=== PATIENT | male | born 1975 | race Caucasian/White ===

== ENCOUNTER 2025-07-16 18:19 | Inpatient (IN) | payer MEDICAID, SELFPAY ==
[2025-07-16] VITALS (8 sets, daily range): BP systolic 131–169; BP diastolic 79–108; PULSE 106–124; RESP 16–22; TEMP 36.2–37.1; O2SAT 94–100; BMI 32.9; BMI 32.5
--- NOTE | 2025-07-16 19:28 | EX.ED.DYSGE1 ---
HPI History of Present Illness Chief Complaint: ETOH Intox Narrative Narrative: Chief complaint and HPI: 50-year-old male with past medical history of alcohol abuse presents for evaluation of alcohol detox. Patient states his last drink was yesterday evening. Drink about 1/2 gallon of whiskey. States he was in a detox program approximately 1 week ago at an outlying facility. States that he feels anxious with nausea and vomiting. Feels that he is actively withdrawing. Endorses a seizure from alcohol many years ago. Review of systems: See HPI Medications: As listed on the chart Allergies: As listed on the chart PFSH: Per chart Vital signs: As listed on the chart. Reviewed. Physical exam: Gen: A&O x3, anxious Head: Normocephalic, atraumatic Eyes: No sclera icterus, conjunctiva clear ENT: Dry mucous membranes CV: Tachycardic, regular rhythm, no murmurs Resp: Lungs CTA BL, no w/r/c GI: Abd soft, non-distended, non-tender, no r/r/g Musc: Full ROM, no deformity Skin: Warm, dry Neuro: Alert, oriented, grossly intact, sensation intact Psych: Cooperative PFSH PFSH Medical History no medical history Home Medications ?Medication ?Instructions ?Recorded ?Last Taken ?Type albuterol sulfate 90 mcg/actuation 2 inh inhalation Q6H PRN shortness 07/16/25 07/16/25 History aerosol inhaler (Ventolin HFA) of breath or wheezing esomeprazole magnesium PO DAILY gerd 07/16/25 07/16/25 History losartan 07/16/25 07/16/25 History Family History no significant family his Surgical History no surgical history Social History Smoking Status: Current every day smoker tobacco type: cigarettes EXAM Physical Exam Const Vital Signs: 07/16/25 18:21 07/16/25 19:21 07/16/25 20:00 Temperature 97.2 F L Temperature Source Temporal Pulse Rate 124 H 106 H 112 H Respiratory Rate 22 H 18 22 H Blood Pressure 169/105 H 152/101 H 143/108 H Blood Pressure Mean 126 118 119 Pulse Ox 98 99 97 Oxygen Delivery Method Room Air Room Air 07/16/25 21:00 07/16/25 22:00 07/16/25 22:38 Temperature 97.2 F L Temperature Source Pulse Rate 108 H 108 H 108 H Respiratory Rate 19 H 19 H Blood Pressure 131/79 H 139/94 H 139/94 H Blood Pressure Mean 96 109 109 Pulse Ox 94 100 100 Oxygen Delivery Method Room Air Room Air MDM MDM MDM Narrative Medical decision making narrative: 50-year-old male with past medical history of alcohol abuse presents for evaluation of alcohol detox. Patient states his last drink was yesterday evening. Drink about 1/2 gallon of whiskey. States he was in a detox program approximately 1 week ago at an outlying facility. States that he feels anxious with nausea and vomiting. Feels that he is actively withdrawing. Endorses a seizure from alcohol many years ago. Patient is actively withdrawing. Ativan, Zofran, NS bolus ordered. Laboratory workup ordered for detox program. Patient placed on seizure precautions. CBC without leukocytosis. Patient has anemia with hemoglobin of 12.5. CMP shows mild dehydration without CELIO. No transaminitis. Magnesium unremarkable. UA positive for barbiturates, benzodiazepines, cannabis. Likely secondary to the Ativan used as well as recent detox. Alcohol level 167. Patient will warrant admission for detox. Patient discussed with the hospital service who accepted admission. Patient was updated of all results and the plan confirmed understanding. Impression: 1. Alcohol intoxication with history of abuse 2. Requesting alcohol detox 3. Mild dehydration Lab Data Labs: Laboratory Results - last 24 hr 07/16/25 07/16/25 19:40 21:10 WBC 5.6 RBC 4.17 L Hgb 12.5 L Hct 36.8 L MCV 88.2 MCH 30.0 MCHC 34.0 RDW Std Deviation 66.7 H RDW Coeff of Marium 21.2 H Plt Count 254 MPV 9.4 Immature Gran % (Auto) 0.200 Neut % (Auto) 53.2 Lymph % (Auto) 35.6 [place] % (Auto) 10.3 H Eos % (Auto) 0.5 Baso % (Auto) 0.2 Absolute Neuts (auto) 3.0 Absolute Lymphs (auto) 1.98 Nucleated RBC % 0 Sodium 133 Potassium 4.0 Chloride 97 L Carbon Dioxide 17.2 L Anion Gap 19 H BUN 5 Creatinine 0.82 Estim Creat Clear Calc 137.13 Est GFR (MDRD) Non-Af 108 BUN/Creatinine Ratio 6.4 L Glucose 100 H Calcium 9.3 Magnesium 1.9 Total Bilirubin 0.29 AST 33 ALT 21 Alkaline Phosphatase 118 Total Protein 8.1 Albumin 4.3 Globulin 3.9 Albumin/Globulin Ratio 1.1 Urine Opiates Screen NEGATIVE U Buprenorphine Qual NEGATIVE Ur Oxycodone Screen NEGATIVE Urine Methadone Screen NEGATIVE Urine Fentanyl Screen NEGATIVE Ur Barbiturates Screen PRESUMPTIVE POSITIVE Ur Phencyclidine Scrn NEGATIVE Ur Amphetamines Screen NEGATIVE U Benzodiazepines Scrn PRESUMPTIVE POSITIVE Urine Cocaine Screen NEGATIVE U Cannabinoids Screen PRESUMPTIVE POSITIVE Ethyl Alcohol 167.0 H Discharge Plan Triage Chief Complaint: ETOH Intox ED Provider: Roel Bowden Dx/Rx/DC Orders Prescriptions: No Action albuterol sulfate [Ventolin HFA] 90 mcg/actuation HFA aerosol inhaler 2 inh inhalation Q6H PRN (Reason: shortness of breath or wheezing) losartan Patient Comments: doesnt know strength esomeprazole magnesium [Acid Architecture Intern (esomeprazole)] PO DAILY Patient Comments: pt does not know strength Primary Care Provider: Yary Barber,Out of Referrals: Yary Barber,Out of [Primary Care Provider, Medical] Print Language: Kinyarwanda
[2025-07-16] MEDS: 0.9% Normal Saline (1000mL) 1,000 ML 1000 ML IV (19:51)
[2025-07-16 20:02] LABS: Hematocrit 36.8 % (40-54); Hemoglobin 12.5 g/dL (13.0-16.5); Immature Granulocytes Count 0.010 X10^3/uL (0.0-0.0); Mean Corp Hgb Conc 34.0 g/dL (32-36); Mean Corpuscular Volume 88.2 fL (80-94); Mean Platelet Vol. 9.4 fl (6.2-12.0); NRBC Flagged by Analyzer 0 % (0-5); POSITIVE MORPHOLOGY YES; Platelet Count 254 K/mm3 (150-450); RBC Distribution Width CV 21.2 % (11.6-14.6); RBC Distribution Width SD 66.7 fl (35.1-43.9); Red Blood Count 4.17 M/mm3 (4.6-6.2); White Blood Count 5.6 K/mm3 (4.4-11.0)
[2025-07-16 20:32] LABS: Differential Indicated SCAN CRITERIA MET
[2025-07-16 20:55] LABS: Alcohol, Blood (Medical)-Serum 167.0 mg/dL (<=10.0)
[2025-07-16 20:59] LABS: Magnesium 1.9 mg/dL (1.5-2.2)
[2025-07-16 21:17] LABS: AST(SGOT) 33 U/L (<=37); Alanine Aminotransfer ALT/SGPT 21 U/L (<=46); Albumin, Serum 4.3 g/dL (3.5-5.0); Alkaline Phosphatase 118 U/L (40-129); Anion Gap 19 (5-15); BUN 5 mg/dL (4-19); BUN/Creat Ratio 6.4 RATIO (10-20); Calcium,Total 9.3 mg/dL (7.6-11.0); Carbon Dioxide 17.2 mmol/L (21.0-32.0); Chloride 97 mmol/L (98-108); Estimated Creatinine Clearance 137.13 ml/min (50-250); Globulin 3.9 g/dL (2.2-4.2); Glucose 100 mg/dL (70-99); Potassium 4.0 mmol/L (3.3-5.1)
[2025-07-16 22:03] LABS: Barbiturate Urine PRESUMPTIVE POSITIVE (< 200 ng/mL); Benzodiazepine Urine PRESUMPTIVE POSITIVE (< 200 ng/mL); PCP Urine NEGATIVE (< 25 ng/mL); THC Urine PRESUMPTIVE POSITIVE (< 50 ng/mL)
--- NOTE | 2025-07-16 22:48 | PCM.HP.STD ---
HPI - General General Date of Admission: 07/16/25 Date of Service: 07/16/25 Chief Complaint: EtOH detoxification HPI Narrative The patient is a 50 y/o M w/ PMHx: Suspected ROBER, HTN, HLD, Obesity, Tobacco use, EtOH abuse (1/2 gallon whiskey daily) who presents to the [facility] on 07/16/25 w/ request for alcohol detoxification with most recent drink reportedly the day prior at 4 PM however his alcohol level upon arrival notably elevated reporting that he had bee recently the week prior in [place] where he underwent inpatient acute alcohol withdrawal treatment at that time unfortunately relapsing upon discharge reporting currently mild nausea. Workup in the ED included T98.7, heart 108, BP 163/102, respiratory rate 18, 100% on room air, CBC with WC 5.6, Erin 12.5, MCV 88.2, platelet 254 without marked shift, CMP with chloride 97, carbon oxide 17.2, anion gap 19, BUN/creatinine 5/0.82, GFR 108, glucose 100, hepatic profile not marked appearing, UDS with barbiturates, benzodiazepines, cannabis, ethyl alcohol 167. In the ED patient ministered 1 L normal saline, lorazepam 1 mg IV x 1, Reglan 10 mg IV x 1, Zofran 4 mg IV x 2. [facility] Medical History ROBER (obstructive sleep apnea) HLD (hyperlipidemia) HTN (hypertension) Cannabis use disorder Tobacco use Obesity Alcohol abuse (~07/17/25) Medical History no medical history Home Medications ?Medication ?Instructions ?Recorded ?Last Taken ?Type albuterol sulfate 90 mcg/actuation 2 inh inhalation Q6H PRN shortness 07/16/25 07/16/25 History aerosol inhaler (Ventolin HFA) of breath or wheezing esomeprazole magnesium PO DAILY gerd 07/16/25 07/16/25 History losartan 07/16/25 07/16/25 History Allergy/AdvReac Type Severity Reaction Status Date / Time No Known Allergies Allergy Verified 07/16/25 23:37 Family History (Updated 07/17/25 @ 00:[address] Brianne Andersen MD) Mother Heart disease Hypertension Father Heart disease Hypertension Family History no significant family his Surgical History History of left shoulder replacement H/O eye surgery Hx of hand surgery Surgical History no surgical history Social History (Updated 07/17/25 @ 00:[address] Brianne Andersen MD) household members: none Smoking Status: Current every day smoker tobacco type: cigarettes Smoking packs per day: 0.5 Smoking cigarettes per day: 10.0 alcohol intake: current alcohol intake frequency: 3 or more drinks per day Alcohol type: hard liquor details: 1/2 gallon whiskey daily. substance use type: marijuana ROS ROS Narrative Admission Review of Systems: CONSTITUTIONAL: No weight loss, fever, chills, + weakness or fatigue. HEENT: Eyes: No visual loss, blurred vision, double vision or yellow sclerae. Ears, Nose, Throat: No hearing loss, sneezing, congestion, runny nose or sore throat. SKIN: No rash or itching, lesions, wounds except + occasional stage ecchymoses, abrasion. CARDIOVASCULAR: No chest pain, chest pressure or chest discomfort, palpitations, edema, orthopnea, syncopal events. RESPIRATORY: No shortness of breath, cough or sputum, wheezing, hemoptysis. GASTROINTESTINAL: + anorexia, nausea. No vomiting or diarrhea, abdominal pain, melena, BRBPR. GENITOURINARY: No dysuria, frequency, urgency or retention. NEUROLOGICAL: No headache, dizziness, syncope, paralysis, ataxia, numbness or tingling in the extremities, focal weakness, change in bowel or bladder control, seizure. MUSCULOSKELETAL: + muscle, back pain, joint pain or stiffness. HEMATOLOGIC: + Chronic anemia, no specific easy bleeding/bruising history. LYMPHATICS: No enlarged nodes. No history of splenectomy. PSYCHIATRIC: + Reports no documented history but per discussion notes high anxiety issues. ENDOCRINOLOGIC: No reports of sweating, cold or heat intolerance. No polyuria or polydipsia. ALLERGIES: No history of asthma, hives, eczema or rhinitis. Vital Signs Vital Signs Vital Signs: 07/16/25 18:21 07/16/25 19:21 07/16/25 20:00 Temperature 97.2 F L Temperature Source Temporal Pulse Rate 124 H 106 H 112 H Respiratory Rate 22 H 18 22 H Blood Pressure 169/105 H 152/101 H 143/108 H Blood Pressure Mean 126 118 119 Pulse Ox 98 99 97 Oxygen Delivery Method Room Air Room Air 07/16/25 21:00 07/16/25 22:00 07/16/25 22:38 Temperature 97.2 F L Temperature Source Pulse Rate 108 H 108 H 108 H Respiratory Rate 19 H 19 H Blood Pressure 131/79 H 139/94 H 139/94 H Blood Pressure Mean 96 109 109 Pulse Ox 94 100 100 Oxygen Delivery Method Room Air Room Air Weight Weight: 236 lb Body Mass Index (BMI) 32.9 Physical Exam Narrative Physical Examination: General: Awake, alert, oriented x 3 and cooperative, laying in the bed, fatigued, notes nausea but no obvious evidence of tremulousness or reported tactile disturbances. Skin: Normal color, normal turgor, no icterus, no cyanosis except occasional stage ecchymoses, abrasion. HEENT: AT/NC, EOMI, PERRLA, MMM, no carotid bruits or JVD noted. Lungs: CTA bilaterally, moderate effort, mild decrease BL bases, no rales, ronchi or wheezing. Heart: Regular, mildly tachycardic; no gallop, rub audible. Abdomen: Soft, obese, NTTP, mildly hyperactive bowel sounds, difficult to discern distention HSM given habitus. Extremities: No cyanosis, no clubbing, no significant distal edema. Neurological: Patient awake, alert, oriented as noted, cognitive function intact; pupils equally reactive to light and accommodation, cranial nerves grossly normal, moving all 4 extremities, no focal deficits, strength moderately globally decreased. Psychiatric: Affect appears fatigued, anxious, no acute evidence of depressive feelings. Results Lab / Micro Data 07/16/25 19:40 07/16/25 19:40 Labs: Laboratory Results - last 24 hr 07/16/25 19:40: WBC 5.6, RBC 4.17 L, Hgb 12.5 L, Hct 36.8 L, MCV 88.2, MCH 30.0, MCHC 34.0, RDW Std Deviation 66.7 H, RDW Coeff of Marium 21.2 H, Plt Count 254, MPV 9.4, Immature Gran % (Auto) 0.200, Neut % (Auto) 53.2, Lymph % (Auto) 35.6, [place] % (Auto) 10.3 H, Eos % (Auto) 0.5, Baso % (Auto) 0.2, Absolute Neuts (auto) 3.0, Absolute Lymphs (auto) 1.98, Nucleated RBC % 0, Sodium 133, Potassium 4.0, Chloride 97 L, Carbon Dioxide 17.2 L, Anion Gap 19 H, BUN 5, Creatinine 0.82, Estim Creat Clear Calc 137.13, Est GFR (MDRD) Non-Af 108, BUN/Creatinine Ratio 6.4 L, Glucose 100 H, Calcium 9.3, Magnesium 1.9, Total Bilirubin 0.29, AST 33, ALT 21, Alkaline Phosphatase 118, Total Protein 8.1, Albumin 4.3, Globulin 3.9, Albumin/Globulin Ratio 1.1, Ethyl Alcohol 167.0 H 07/16/25 21:10: Urine Opiates Screen NEGATIVE, U Buprenorphine Qual NEGATIVE, Ur Oxycodone Screen NEGATIVE, Urine Methadone Screen NEGATIVE, Urine Fentanyl Screen NEGATIVE, Ur Barbiturates Screen PRESUMPTIVE POSITIVE, Ur Phencyclidine Scrn NEGATIVE, Ur Amphetamines Screen NEGATIVE, U Benzodiazepines Scrn PRESUMPTIVE POSITIVE, Urine Cocaine Screen NEGATIVE, U Cannabinoids Screen PRESUMPTIVE POSITIVE Assessment & Plan Assessment/Plan (1) Admitted to alcohol detoxification center: (2) Alcohol abuse: PLAN: Plan The patient is a 50 y/o M w/ PMHx: Suspected ROBER, HTN, HLD, Obesity, Tobacco use, EtOH abuse who presents to the [facility] on 07/16/25 w/ request for alcohol detoxification with most recent drink reportedly the day prior at 4 PM however his alcohol level upon arrival notably elevated reporting that he had bee recently the week prior in [place] where he underwent inpatient acute alcohol withdrawal treatment at that time unfortunately relapsing upon discharge reporting currently mild nausea. #1. Acute EtOH Withdrawal: Will admit to DC, routine labs obtained in the ED upon presentation as noted. Given interest in sobriety, will initiate and continue on protocol with taper course of Phenobarbital, as needed gabapentin, Catapres, Bentyl, Vistaril, IV fluids, IV antiemetics, Tylenol as needed for pain. Will consult Case management for assistance for transition to next level of rehabilitation care. Mag, phos pending. Maintain on CIWA protocol concurrently. #2. Possible chronic normocytic anemia: Admission hemoglobin 12.5, MCV 88.2, no comparison in the system, suspect likely chronic secondary to alcohol use. #3. Hypertension: Attempting to clarify home medications, will add once obtained however in the interim we will have PRN hydralazine. #4. Hyperlipidemia: Not on regimen, encourage continued follow-up outpatient. #5. Tobacco Abuse: Encouraged cessation, inpatient consultation per RT, NR if desired. #6. Suspected ROBER: Patient believes he may have previously been diagnosed, given current nausea and risk of emesis will hold off on using any CPAP at this time. #7. DVT prophylaxis: Low risk for type of presentation, encourage ambulation. Charges/Coding Visit Charges Inpatient E&M: 19122 Init Hosp L2
[2025-07-16 23:02] LABS: Anisocytosis 2+; Differential Comment SCANNED
[2025-07-16 23:03] LABS: Polychromasia 1+
[2025-07-16 23:43] LABS: Magnesium 1.8 mg/dL (1.5-2.2)
[2025-07-17] VITALS (9 sets, daily range): BP systolic 121–163; BP diastolic 59–108; PULSE 70–126; RESP 16–18; TEMP 36.2–36.9; O2SAT 94–100
[2025-07-17] MEDS: Lactated Ringers 1,000 ML 125 ML IV (00:19)
[2025-07-17] MEDS: hydrOXYzine PAM 25 MG Capsule 50 MG PO ×3 (01:03→13:02)
[2025-07-17] MEDS: 0.9% Saline Lock 10 ML Syringe IV (01:27)
--- NOTE | 2025-07-17 12:18 | PN.HOSP_ITS ---
Reason for Visit
--- NOTE | 2025-07-17 12:18 | PCM.PN.HOSP ---
Reason for Visit Chief Complaint: EtOH detoxification Objective Data Objective Data Vital Signs: Vital Signs Temp Pulse Resp BP Pulse Ox O2 Del Method 97.2 F L 97 16 138/84 H 94 Room Air 07/17/25 09:51 07/17/25 09:51 07/17/25 09:51 07/17/25 09:51 07/17/25 09:51 07/17/25 09:51 Oxygen Delivery Method Room Air Weight: 232 lb 14.4 oz Body Mass Index (BMI) 32.5 Intake & Output: Intake and Output for Last 24 Hours 07/15/25 07/16/25 07/17/25 23:59 23:59 23:59 Intake Total 1000 / 1000 1000 / 1000 Balance 1000 / 1000 1000 / 1000 Lab / Micro Data 07/16/25 19:40 07/16/25 19:40 Labs: Laboratory Results - last 24 hr 07/16/25 19:40: WBC 5.6, RBC 4.17 L, Hgb 12.5 L, Hct 36.8 L, MCV 88.2, MCH 30.0, MCHC 34.0, RDW Std Deviation 66.7 H, RDW Coeff of Marium 21.2 H, Plt Count 254, MPV 9.4, Immature Gran % (Auto) 0.200, Neut % (Auto) 53.2, Lymph % (Auto) 35.6, [place] % (Auto) 10.3 H, Eos % (Auto) 0.5, Baso % (Auto) 0.2, Absolute Neuts (auto) 3.0, Absolute Lymphs (auto) 1.98, Nucleated RBC % 0, Differential Comment SCANNED, Platelet Estimate ADEQUATE, Polychromasia 1+, Anisocytosis 2+, Sodium 133, Potassium 4.0, Chloride 97 L, Carbon Dioxide 17.2 L, Anion Gap 19 H, BUN 5, Creatinine 0.82, Estim Creat Clear Calc 137.13, Est GFR (MDRD) Non-Af 108, BUN/Creatinine Ratio 6.4 L, Glucose 100 H, Calcium 9.3, Phosphorus 3.2, Magnesium 1.9 07/16/25 19:40: Magnesium 1.8, Total Bilirubin 0.29, AST 33, ALT 21, Alkaline Phosphatase 118, Total Protein 8.1, Albumin 4.3, Globulin 3.9, Albumin/Globulin Ratio 1.1, Ethyl Alcohol 167.0 H 07/16/25 21:10: Urine Opiates Screen NEGATIVE, U Buprenorphine Qual NEGATIVE, Ur Oxycodone Screen NEGATIVE, Urine Methadone Screen NEGATIVE, Urine Fentanyl Screen NEGATIVE, Ur Barbiturates Screen PRESUMPTIVE POSITIVE, Ur Phencyclidine Scrn NEGATIVE, Ur Amphetamines Screen NEGATIVE, U Benzodiazepines Scrn PRESUMPTIVE POSITIVE, Urine Cocaine Screen NEGATIVE, U Cannabinoids Screen PRESUMPTIVE POSITIVE Physical Exam Narrative Seen and examined. Patient has severe alcohol withdrawal with visual, auditory and tactile hallucination. Patient has facial flushing, diaphoresis/sweating, muscle aches and pain, tossing on the bed restlessness and anxiety. CIWA score 37. Denies abdominal pain or chronic stigmata of chronic alcohol disease/disorder Physical exam General: Awake, Oriented x3, Cooperative HEENT: Atraumatic, PERRLA, EOMI, Normocephalic. Oral: No Gingival or Mucosal Lesions/ Ulcerations Neck: Supple, No JVD, Negative Carotid Bruits Chest wall/Lungs: Air entry diminished in bilateral lung bases. No crepitation/rhonchi Cardiovascular: Regular rate and rhythm, Normal S1,S2, No M/G/R Abdomen: Bowel Sounds Present, Soft, Non Tender, Non-Distended : No dysuria. No renal angle tenderness. No suprapubic tenderness. Extremities: No edema, Capillary Refill Less than 3 Seconds Skin: No rashes, No breakdown Musculoskeletal: No Tenderness to Palpation of Joints or Extremities Neurological: Cranial nerves II-XII grossly intact, DTR 2+/4. No acute focal neurological deficit. Psych/Mental Status: Hallucinations, anxiety. Insomnia Assessment & Plan Assessment/Plan (1) Admitted to alcohol detoxification center: (2) Alcohol abuse: PLAN: Plan The patient is a 50 y/o M is being admitted with acute alcohol withdrawal syndrome. Patient drinks half a gallon of whiskey every day since teenage. #1. Acute EtOH Withdrawal syndrome with chronic alcohol use disorder, tolerance and dependence: Patient is being admitted to [facility] floor. Patient on phenobarbital based order set along with other adjunctive medications gabapentin, Bentyl, Vistaril, clonidine, Klonopin as needed for alcohol withdrawal symptom control. Patient is on thiamine and folate acid. CIWA monitor. complex manager 180 consulted. Patient also on as needed Ativan protocol. CIWA score is very high, 37. For now patient has mild tachycardia in 100s but if it was high then will need transfer to ICU for Precedex drip #2. Possible mild chronic normocytic anemia: Admission hemoglobin 12.5, MCV 88.2, #3. Hypertension: Blood pressure elevated due to alcohol withdrawal. On Catapres #4. Hyperlipidemia: Not on regimen, encourage continued follow-up outpatient. #5. Tobacco Abuse: Encouraged cessation, on nicotine patch 6. Suspected obstructive sleep apnea: Encouraged to follow-up with pulmonary clinic or home sleep/night sleep study DVT prophylaxis: Low risk for type of presentation, encourage ambulation. Laboratory Results 07/16/25 19:40: WBC 5.6, RBC 4.17 L, Hgb 12.5 L, Hct 36.8 L, MCV 88.2, MCH 30.0, MCHC 34.0, RDW Std Deviation 66.7 H, RDW Coeff of Marium 21.2 H, Plt Count 254, MPV 9.4, Immature Gran % (Auto) 0.200, Neut % (Auto) 53.2, Lymph % (Auto) 35.6, [place] % (Auto) 10.3 H, Eos % (Auto) 0.5, Baso % (Auto) 0.2, Absolute Neuts (auto) 3.0, Absolute Lymphs (auto) 1.98, Nucleated RBC % 0, Differential Comment SCANNED, Platelet Estimate ADEQUATE, Polychromasia 1+, Anisocytosis 2+, Sodium 133, Potassium 4.0, Chloride 97 L, Carbon Dioxide 17.2 L, Anion Gap 19 H, BUN 5, Creatinine 0.82, Estim Creat Clear Calc 137.13, Est GFR (MDRD) Non-Af 108, BUN/Creatinine Ratio 6.4 L, Glucose 100 H, Calcium 9.3, Phosphorus 3.2, Magnesium 1.9 07/16/25 19:40: Magnesium 1.8, Total Bilirubin 0.29, AST 33, ALT 21, Alkaline Phosphatase 118, Total Protein 8.1, Albumin 4.3, Globulin 3.9, Albumin/Globulin Ratio 1.1, Ethyl Alcohol 167.0 H 07/16/25 21:10: Urine Opiates Screen NEGATIVE, U Buprenorphine Qual NEGATIVE, Ur Oxycodone Screen NEGATIVE, Urine Methadone Screen NEGATIVE, Urine Fentanyl Screen NEGATIVE, Ur Barbiturates Screen PRESUMPTIVE POSITIVE, Ur Phencyclidine Scrn NEGATIVE, Ur Amphetamines Screen NEGATIVE, U Benzodiazepines Scrn PRESUMPTIVE POSITIVE, Urine Cocaine Screen NEGATIVE, U Cannabinoids Screen PRESUMPTIVE POSITIVE Charges/Coding Visit Charges Inpatient E&M: 92864 Subs Hosp L2
--- NOTE | 2025-07-17 13:44 | ADDICTION ---
Pt reports that he is really struggling and would like to have a discussion at a later time. Clinician is hospice care consultant this weekend and will see him then.
[2025-07-17] MEDS: Nicotine (PBKC) 21 MG Patch TD (16:41)
[2025-07-18] VITALS (7 sets, daily range): BP systolic 106–130; BP diastolic 49–95; PULSE 87–98; RESP 16–18; TEMP 36.4–37.1; O2SAT 92–99
[2025-07-18] MEDS: hydrOXYzine PAM 25 MG Capsule 50 MG PO (00:46)
--- NOTE | 2025-07-18 02:09 | NURSING ---
Patient came to the nurses station and is asking for his medication. this rn asks what medication he needs. Patient states the medication that he is supposed to get every hour. This rn reviewed his mar and explained that he is on the phenobarb taper and that his next dose is due at 5 am, prn's medications are given based on symptoms and ciwa scores. Pt does not appear symptomatic at this time. Will notify primary rn.
--- NOTE | 2025-07-18 02:25 | NURSING ---
Pt has appeared comfortable and withdrawal symptoms appear to be well controlled throughout most of this shift, with even episodes of sleeping comfortably in bed noticed upon this RN's rounds. pt has only required vistaril for anxiety up until approx 0200 hour. pt frequently has requested ativan by name throughout this shift, stating that the nurse earlier was giving it to me every hour and said i would get it throughout the night. pt educated on CIWA scoring and rating of symptoms. pt educated on trying other PRNs prior to ativan. pt does not appear open to trying this, stating he really just wants the ativan.
[2025-07-18] MEDS: Thiamine Hydrochloride 100 MG Tablet PO (08:31)
[2025-07-18] MEDS: Nicotine (PBKC) 21 MG Patch TD (08:32)
--- NOTE | 2025-07-18 12:25 | ADDICTION ---
Met with pt to complete RAMP assessments. Pt reported that he felt awful and initially he reported that he wanted to go to inpatient treatment. He then asked me if I could speak with someone on getting him back on the Ativan because it made me feel better he reported that he was hallucinating and shaking. TW did not observe any shakiness while completing assessments. Pt agreed to outpatient tx. He reported that I may have to leave if I can't get the Ativan. Clinician gave resources in Pt's location in which he lives.
--- NOTE | 2025-07-18 12:46 | PN.HOSP_ITS ---
Reason for Visit
--- NOTE | 2025-07-18 12:46 | PCM.PN.HOSP ---
Reason for Visit Chief Complaint: EtOH detoxification Objective Data Objective Data Vital Signs: Vital Signs Temp Pulse Resp BP Pulse Ox O2 Del Method 97.7 F L 92 18 129/94 H 98 Room Air 07/18/25 12:41 07/18/25 12:41 07/18/25 12:41 07/18/25 12:41 07/18/25 12:41 07/18/25 12:41 Oxygen Delivery Method Room Air Weight: 232 lb 14.4 oz Body Mass Index (BMI) 32.5 Intake & Output: Intake and Output for Last 24 Hours 07/16/25 07/17/25 07/18/25 23:59 23:59 23:59 Intake Total 1000 / 1000 2220 / 2220 Balance 1000 / 1000 2220 / 2220 Lab / Micro Data 07/16/25 19:40 07/16/25 19:40 Physical Exam Narrative Seen and examined. Patient asking for Ativan. Discussed with [facility] caser Kelton. Patient is on as needed Ativan for high CIWA score but currently does not need it. Denies abdominal pain or chronic stigmata of chronic alcohol disease/disorder Physical exam General: Awake, Oriented x3, Cooperative HEENT: Atraumatic, PERRLA, EOMI, Normocephalic. Oral: No Gingival or Mucosal Lesions/ Ulcerations Neck: Supple, No JVD, Negative Carotid Bruits Chest wall/Lungs: Air entry diminished in bilateral lung bases. No crepitation/rhonchi Cardiovascular: Regular rate and rhythm, Normal S1,S2, No M/G/R Abdomen: Bowel Sounds Present, Soft, Non Tender, Non-Distended : No dysuria. No renal angle tenderness. No suprapubic tenderness. Extremities: No edema, Capillary Refill Less than 3 Seconds Skin: No rashes, No breakdown Musculoskeletal: Tremors of upper extremities no Tenderness to Palpation of Joints or Extremities Neurological: Cranial nerves II-XII grossly intact, DTR 2+/4. No acute focal neurological deficit. Psych/Mental Status: Hallucinations, anxiety. Insomnia Assessment & Plan Assessment/Plan (1) Admitted to alcohol detoxification center: (2) Alcohol abuse: PLAN: Plan The patient is a 50 y/o M is being admitted with acute alcohol withdrawal syndrome. Patient drinks half a gallon of whiskey every day since teenage. #1. Acute EtOH Withdrawal syndrome with chronic alcohol use disorder, tolerance and dependence: Patient is being admitted to [facility] floor. Patient on phenobarbital based order set along with other adjunctive medications gabapentin, Bentyl, Vistaril, clonidine, Klonopin as needed for alcohol withdrawal symptom control. Patient is on thiamine and folate acid. CIWA monitor. commercial intelligence manager [phone] consulted. Patient also on as needed Ativan protocol. CIWA score is very high, 37. For now patient has mild tachycardia in 100s but if it was high then will need transfer to ICU for Precedex drip 07/24: Discussed with Kelton One A Day RN. He is asking for Ativan given though does not meet criteria for high CIWA which is better than yesterday. CIWA today 6. As per Kelton, suspicion of drug-seeking behavior with Ativan. #2. Possible mild chronic normocytic anemia: Admission hemoglobin 12.5, MCV 88.2, #3. Hypertension: Blood pressure elevated due to alcohol withdrawal. On Catapres #4. Hyperlipidemia: Not on regimen, encourage continued follow-up outpatient. #5. Tobacco Abuse: Encouraged cessation, on nicotine patch 6. Suspected obstructive sleep apnea: Encouraged to follow-up with pulmonary clinic or home sleep/night sleep study DVT prophylaxis: Low risk for type of presentation, encourage ambulation. Laboratory Results 07/16/25 19:40: WBC 5.6, RBC 4.17 L, Hgb 12.5 L, Hct 36.8 L, MCV 88.2, MCH 30.0, MCHC 34.0, RDW Std Deviation 66.7 H, RDW Coeff of Marium 21.2 H, Plt Count 254, MPV 9.4, Immature Gran % (Auto) 0.200, Neut % (Auto) 53.2, Lymph % (Auto) 35.6, Burt % (Auto) 10.3 H, Eos % (Auto) 0.5, Baso % (Auto) 0.2, Absolute Neuts (auto) 3.0, Absolute Lymphs (auto) 1.98, Nucleated RBC % 0, Differential Comment SCANNED, Platelet Estimate ADEQUATE, Polychromasia 1+, Anisocytosis 2+, Sodium 133, Potassium 4.0, Chloride 97 L, Carbon Dioxide 17.2 L, Anion Gap 19 H, BUN 5, Creatinine 0.82, Estim Creat Clear Calc 137.13, Est GFR (MDRD) Non-Af 108, BUN/Creatinine Ratio 6.4 L, Glucose 100 H, Calcium 9.3, Phosphorus 3.2, Magnesium 1.9 07/16/25 19:40: Magnesium 1.8, Total Bilirubin 0.29, AST 33, ALT 21, Alkaline Phosphatase 118, Total Protein 8.1, Albumin 4.3, Globulin 3.9, Albumin/Globulin Ratio 1.1, Ethyl Alcohol 167.0 H 07/16/25 21:10: Urine Opiates Screen NEGATIVE, U Buprenorphine Qual NEGATIVE, Ur Oxycodone Screen NEGATIVE, Urine Methadone Screen NEGATIVE, Urine Fentanyl Screen NEGATIVE, Ur Barbiturates Screen PRESUMPTIVE POSITIVE, Ur Phencyclidine Scrn NEGATIVE, Ur Amphetamines Screen NEGATIVE, U Benzodiazepines Scrn PRESUMPTIVE POSITIVE, Urine Cocaine Screen NEGATIVE, U Cannabinoids Screen PRESUMPTIVE POSITIVE Charges/Coding Visit Charges Inpatient E&M: 61689 Subs Hosp L2
[2025-07-19 08:30] VITALS: BP 132/80; PULSE 73; RESP 18; TEMP 36.6; O2SAT 97
[2025-07-19 08:32] VITALS: PULSE 73; RESP 18; O2SAT 97
[2025-07-19] MEDS: Nicotine (PBKC) 21 MG Patch TD (08:40)
[2025-07-19] MEDS: Thiamine Hydrochloride 100 MG Tablet PO (08:40)
[2025-07-19 08:56] VITALS: O2SAT 94
[2025-07-19] MEDS: hydrOXYzine PAM 25 MG Capsule 50 MG PO (09:33)
--- NOTE | 2025-07-19 11:14 | NURSING ---
1100 called by DERMATOLOGICAL SURGEON, patient informed her he wants to go home, Charge nurse aware, AMA paperwork signed and Dr brent Briceño RN
--- NOTE | 2025-07-19 16:37 | PCM.DC.SUM ---
Providers Date of Admission: 07/16/25 Date of Discharge: 07/19/25 Primary Care Physician: Out of [facility] Doctor Reason For Visit: ETOH DETOX Diagnosis Discharge Diagnosis (1) Admitted to alcohol detoxification center: Status: Acute (2) Alcohol abuse: Status: Inactive Code(s): F10.10 - Alcohol abuse, uncomplicated Plan The patient is a 50 y/o M is being admitted with acute alcohol withdrawal syndrome. Patient drinks half a gallon of whiskey every day since teenage. #1. Acute EtOH Withdrawal syndrome with chronic alcohol use disorder, tolerance and dependence: Patient is being admitted to MedSurg floor. Patient on phenobarbital based order set along with other adjunctive medications gabapentin, Bentyl, Vistaril, clonidine, Klonopin as needed for alcohol withdrawal symptom control. Patient is on thiamine and folate acid. CIWA monitor. geek squad manager 180 consulted. Patient also on as needed Ativan protocol. CIWA score is very high, 37. For now patient has mild tachycardia in 100s but if it was high then will need transfer to ICU for Precedex drip 07/24: Discussed with Temitope Melara RN. He is asking for Ativan given though does not meet criteria for high CIWA which is better than yesterday. CIWA today 6. As per Kelton, suspicion of drug-seeking behavior with Ativan. 08/17: Patient decided in the morning to sign out. He has been constantly asking about IV benzodiazepine/Ativan as a drug-seeking behavior although medically CIWA score was not high to merit IV Ativan. Please see note above. #2. Possible mild chronic normocytic anemia: Admission hemoglobin 12.5, MCV 88.2, #3. Hypertension: Blood pressure elevated due to alcohol withdrawal. On Catapres #4. Hyperlipidemia: Not on regimen, encourage continued follow-up outpatient. #5. Tobacco Abuse: Encouraged cessation, on nicotine patch 6. Suspected obstructive sleep apnea: Encouraged to follow-up with pulmonary clinic or home sleep/night sleep study DVT prophylaxis: Low risk for type of presentation, encourage ambulation. Patient signed AMA Laboratory Results 07/16/25 19:40: WBC 5.6, RBC 4.17 L, Hgb 12.5 L, Hct 36.8 L, MCV 88.2, MCH 30.0, MCHC 34.0, RDW Std Deviation 66.7 H, RDW Coeff of Marium 21.2 H, Plt Count 254, MPV 9.4, Immature Gran % (Auto) 0.200, Neut % (Auto) 53.2, Lymph % (Auto) 35.6, [place] % (Auto) 10.3 H, Eos % (Auto) 0.5, Baso % (Auto) 0.2, Absolute Neuts (auto) 3.0, Absolute Lymphs (auto) 1.98, Nucleated RBC % 0, Differential Comment SCANNED, Platelet Estimate ADEQUATE, Polychromasia 1+, Anisocytosis 2+, Sodium 133, Potassium 4.0, Chloride 97 L, Carbon Dioxide 17.2 L, Anion Gap 19 H, BUN 5, Creatinine 0.82, Estim Creat Clear Calc 137.13, Est GFR (MDRD) Non-Af 108, BUN/Creatinine Ratio 6.4 L, Glucose 100 H, Calcium 9.3, Phosphorus 3.2, Magnesium 1.9 07/16/25 19:40: Magnesium 1.8, Total Bilirubin 0.29, AST 33, ALT 21, Alkaline Phosphatase 118, Total Protein 8.1, Albumin 4.3, Globulin 3.9, Albumin/Globulin Ratio 1.1, Ethyl Alcohol 167.0 H 07/16/25 21:10: Urine Opiates Screen NEGATIVE, U Buprenorphine Qual NEGATIVE, Ur Oxycodone Screen NEGATIVE, Urine Methadone Screen NEGATIVE, Urine Fentanyl Screen NEGATIVE, Ur Barbiturates Screen PRESUMPTIVE POSITIVE, Ur Phencyclidine Scrn NEGATIVE, Ur Amphetamines Screen NEGATIVE, U Benzodiazepines Scrn PRESUMPTIVE POSITIVE, Urine Cocaine Screen NEGATIVE, U Cannabinoids Screen PRESUMPTIVE POSITIVE Medications at Discharge Home Medications albuterol sulfate 90 mcg/actuation aerosol inhaler (Ventolin HFA) 2 inh inhalation Q6H PRN shortness of breath or wheezing 07/16/25 esomeprazole magnesium PO DAILY gerd 07/16/25 losartan 07/16/25 Physical Exam Narrative Seen and examined. Patient asking for Ativan. Patient is on as needed Ativan for high CIWA score but currently does not need it. Denies abdominal pain or chronic stigmata of chronic alcohol disease/disorder Physical exam General: Awake, Oriented x3, Cooperative, HEENT: Atraumatic, PERRLA, EOMI, Normocephalic. Oral: No Gingival or Mucosal Lesions/ Ulcerations Neck: Supple, No JVD, Negative Carotid Bruits Chest wall/Lungs: Air entry diminished in bilateral lung bases. No crepitation/rhonchi Cardiovascular: Regular rate and rhythm, Normal S1,S2, No M/G/R Abdomen: Bowel Sounds Present, Soft, Non Tender, Non-Distended : No dysuria. No renal angle tenderness. No suprapubic tenderness. Extremities: No edema, Capillary Refill Less than 3 Seconds Skin: No rashes, No breakdown Musculoskeletal: Tremors of upper extremities no Tenderness to Palpation of Joints or Extremities Neurological: Cranial nerves II-XII grossly intact, DTR 2+/4. No acute focal neurological deficit. Psych/Mental Status: Mildly irritable. States hallucinations Weight / BMI Weight Weight: 232 lb 14.4 oz Body Mass Index (BMI) 32.5 ABG / Lab / Microbiology Data 07/16/25 19:40 07/16/25 19:40 D/C Instructions DC O2, CPAP, BIPAP Needs Home O2 Discharge instructions: No Meaningful Use Info Meaningful Use Meaningful Use Diagnoses (Choose all that apply): None applicable Discharge Plan Admission Admit Date/Time: 07/16/25 22:48 Attending Provider: Brady Tompkins Primary Care Provider: Yary Barber,Out of Consulting Providers: Brianne Andersen Discharge Orders/Prescriptions Prescriptions: No Action albuterol sulfate [Ventolin HFA] 90 mcg/actuation HFA aerosol inhaler 2 inh inhalation Q6H PRN (Reason: shortness of breath or wheezing) losartan Patient Comments: doesnt know strength esomeprazole magnesium [Acid Bag Machine Operator (esomeprazole)] PO DAILY Patient Comments: pt does not know strength Referrals / Follow Up: Yary Barber,Out of [Primary Care Provider, Medical] Disposition Disposition (needs filled in before D/C Order can be placed): Against Medical Advice Charges/Coding Visit Charges Inpatient E&M: 34265 Disch Hosp >30min
== END 2025-07-19 11:20 | disposition left against medical advice (07) | DRG 770 ==
LOC: ED 19:26 → MS3 23:01
PROVIDERS: Admitting Provider Family Medicine; Emergency Provider Surgery; Visit Provider Internal Medicine
DX: F10.239 Alcohol dependence with withdrawal, unspecified (principal); D64.9 Anemia, unspecified; I10 Essential (primary) hypertension; E66.9 Obesity, unspecified; E86.0 Dehydration; G47.33 Obstructive sleep apnea (adult) (pediatric); E78.5 Hyperlipidemia, unspecified; F17.210 Nicotine dependence, cigarettes, uncomplicated; F12.90 Cannabis use, unspecified, uncomplicated; Y90.6 Blood alcohol level of 120-199 mg/100 ml
CPT/HCPCS: 80053; 80307; 82077; 83735; 84100; 85025; 99285; A4216; J2405